=== PATIENT | male | born 1995 | race American Indian/Alaskan Native ===

== ENCOUNTER → 2018-03-19 | Outpatient (REF) | payer OTHER ==
[2018-03-19 14:16] LABS: ERYTHROCYTE SEDIMENTATION RATE 4 mm/hr (0-15)
== END ==
LOC: M LAB REF 13:32
DX: C81.90 Hodgkin lymphoma, unspecified, unspecified site (principal)
CPT/HCPCS: 84443

== ENCOUNTER → 2018-12-18 | Outpatient (CLI) | payer OTHER ==
--- NOTE | 2018-12-18 17:57 | REP ---
Thyroid sonography: History: History of Hodgkin's lymphoma, 2015. Status post radiation therapy chemotherapy. Evaluate thyroid. Findings: Thyroid isthmus is 0.2 cm thick. Right lobe dimensions by ultrasound are 3.8 x 0.9 x 1.1 cm. Left lobe dimensions are 3.3 x 1.0 x 0.8 cm. No thyroid nodule is seen. There is a 1 mm cyst in the right lobe. Thyroid parenchyma is homogeneous otherwise. No adenopathy is seen. Impression: Normal thyroid sonography. Electronically Signed by Maico Davis MD 12/18/2018 08:06 P
== END ==
LOC: M RAD 13:06
PROVIDERS: ATTEND Internal Medicine Hematology & Oncology
DX: E03.9 Hypothyroidism, unspecified (principal)

== ENCOUNTER → 2018-12-22 | Outpatient (CLI) | payer OTHER ==
[~2018-12-22] MED LIST: LIDOCAINE 2% MDV 20 ML VIAL As Ordered ONE
--- NOTE | 2018-12-23 07:03 | REPIR ---
DATE OF PROCEDURE: 12/22/2018 ATTENDING PHYSICIAN: Dr. Brandin Mcleod [facility]: Thania Martinez and Kerry Sal PREOPERATIVE DIAGNOSIS: Lymphoma status post right internal jugular vein tunneled central venous catheter with subcutaneous port placement. POSTOPERATIVE DIAGNOSIS: Lymphoma status post right internal jugular vein tunneled central venous catheter with subcutaneous port placement. PROCEDURE: Removal of right internal jugular vein tunneled central venous catheter with subcutaneous port, right chest scar revision. INDICATION: The patient is a 23-year-old male who was diagnosed with lymphoma who required access for chemotherapy and underwent placement of a right internal jugular vein tunneled central venous catheter with subcutaneous port. The patient no longer requires access and will undergo removal of the port. The patient also has a widened scar which is approximately 1 cm in width from the previous placement of the Port-A-Cath. The patient will undergo revision of the scar with removal of the scar tissue and removal of the right internal jugular vein tunneled central venous catheter with subcutaneous port. Risks, benefits and alternative treatment options were discussed with the patient. Alternative treatment options included, but were not limited to no intervention. Benefits include, but not limited to removal of the scar and the port, reducing the risks associated with the continued placement of the port. Risks included, but were not limited well to, infection, bleeding, pneumothorax, hemothorax, possible need for further open surgical intervention, cerebrovascular accident, myocardial infarction, pulmonary embolus, deep vein thrombosis (DVT, loss of limb, loss of life, poor outcome, and poor results. The patient's questions were answered. The procedure was described and explained to the patient in detail with drawing of pictures, explaining the procedure and the pertinent anatomies. The patient acknowledges understanding of these risks, benefits and alternative options and agrees to proceed. There were no promises or guarantees made regarding the procedure outcome or results. The patient and his fiancee were present during the discussion of the procedure. ANESTHESIA: Local with 30 mL of 2% lidocaine. FLUORO TIME: 0.1 minutes. CONTRAST: None. COMPLICATIONS: None. DRAINS: None. SPECIMENS: None. IMPLANTS: None. DESCRIPTION OF PROCEDURE: The patient was taken to the angiography suite, placed on the angiography room table and then prepped and draped in a standard surgical fashion. The skin overlying the subcutaneous port was anesthetized with 2% lidocaine. An incision was then made on either side of the previous scar and then the ellipse of skin and scar were removed. The dissection was then carried down sharply to the subcutaneous port which was identified, sharply dissected free and removed. The catheter was removed with the port. A #2-0 Vicryl suture was placed in [id number] fashion at the tunnel site for hemostasis. The subcutaneous tissue was then closed with interrupted #2-0 Vicryl sutures in vertical mattress fashion. The skin was closed with a running #3-0 Monocryl subcuticular stitch. Steri-Strips and dressings were applied. The patient tolerated the procedure well. All instrument, sponge and needle counts were correct at the end of the case. There were no complications. Dr. Mcleod was present for and directed the entire case. The patient was transferred to holding area and subsequently discharged in stable condition. The results and outcome of the procedure were discussed with the patient and his fiancee and all of their questions were answered.
== END | disposition home or self-care (01) ==
LOC: M IRPRO 07:38
PROVIDERS: ATTEND Internal Medicine Hematology & Oncology
DX: Z45.2 Encounter for adjustment and management of vascular access device (principal); Z85.71 Personal history of Hodgkin lymphoma; Z92.21 Personal history of antineoplastic chemotherapy

== ENCOUNTER → 2019-01-01 | Outpatient (CLI) | payer OTHER ==
[~2019-01-01] MED LIST changes: +ISOVUE-370 76% 100ML VIAL (Q9967) As Ordered ONE; -LIDOCAINE 2% MDV 20 ML VIAL As Ordered ONE
--- NOTE | 2019-01-04 09:39 | REP ---
CT NECK WITH CONTRAST: HISTORY: Hodgkin's lymphoma. CONTRAST: Isovue 370, 75 mL. A calcification is present in the left tonsil. This is secondary to previous inflammatory disease. The naso-, humble-, and hypopharynx, larynx and subglottic trachea are otherwise normal in appearance. The salivary and thyroid glands are normal in size and density. Small lymph nodes less than 1 cm in size are present in the posterior triangles, submandibular and submental areas. The lung apices are clear. The visualized sinuses are clear. A 5 mm metallic density is present in the left orbit. IMPRESSION: 1. There is no neck mass or adenopathy. 2. There is a 5 mm metallic density in the left orbit. Electronically Signed by Haroon Macias MD 01/04/2019 09:42 A
== END ==
LOC: M RAD 16:03
PROVIDERS: ATTEND Internal Medicine Hematology & Oncology
DX: Z85.71 Personal history of Hodgkin lymphoma (principal); E03.9 Hypothyroidism, unspecified; Z92.21 Personal history of antineoplastic chemotherapy
CPT/HCPCS: 70491; Q9967

== ENCOUNTER → 2020-01-13 | Outpatient (CLI) | payer OTHER, SELFPAY ==
[~2020-01-13] MED LIST changes: -ISOVUE-370 76% 100ML VIAL (Q9967) As Ordered ONE; +LEVO25TA5 PO
[2020-01-13 14:37] LABS: ALBUMIN 3.8 GM/DL (3.2-5.2); ALT/SGPT 61 U/L (12-78); BILIRUBIN,TOTAL 0.3 MG/DL (0.2-1.0); BLOOD UREA NITROGEN 16 MG/DL (7-18); CARBON DIOXIDE LEVEL 33 MEQ/L (21-32); CHLORIDE LEVEL 100 MEQ/L (98-107); CREATININE FOR GFR 0.92 MG/DL (0.70-1.30); GLOMERULAR FILTRATION RATE > 60.0 (>60); GLUCOSE, FASTING 87 MG/DL (70-100); POTASSIUM SERUM 3.8 MEQ/L (3.5-5.1); SODIUM LEVEL 140 MEQ/L (136-145); TOTAL PROTEIN 7.3 GM/DL (6.4-8.2)
[2020-01-13 14:52] LABS: HEMATOCRIT 37.3 % (42.0-52.0); HEMOGLOBIN 11.7 g/dl (13.5-17.5); MEAN CORPUSCULAR HEMOGLOBIN 26.6 pg (27.0-33.0); MEAN CORPUSCULAR HGB CONC 31.4 g/dl (32.0-36.5); MEAN CORPUSCULAR VOLUME 84.8 fl (80.0-96.0); PLATELET COUNT, AUTOMATED 200 10^3/uL (150-450); WHITE BLOOD COUNT 5.3 10^3/uL (4.0-10.0)
[2020-01-13 15:59] LABS: CHLAMYDIA DNA AMPLIFICATION NEGATIVE (NEGATIVE); GC DNA AMPLIFICATION NEGATIVE (NEGATIVE)
[2020-01-14 09:34] LABS: HEPATITIS B SURFACE ANTIGEN NEGATIVE (NEGATIVE)
[2020-01-14 10:02] LABS: HEPATITIS C VIRUS ABY INDEX < 0.0 INDEX (<0.8); HIV 1&2 SCREEN CENTAUR NEGATIVE (NEGATIVE)
== END ==
LOC: M LAB 11:51
PROVIDERS: ATTEND Family Medicine
DX: F11.20 Opioid dependence, uncomplicated (principal)

== ENCOUNTER → 2020-02-17 | Outpatient (CLI) | payer OTHER ==
[~2020-02-17] MED LIST changes: +LEVO75TA4 PO; +METH10CO PO
--- NOTE | 2020-02-17 13:39 | REP ---
BILATERAL BREAST ULTRASOUND: Real-time sonographic evaluation of bilateral breast is performed. Patient has a history of Hodgkin's lymphoma with reported larger size of right breast compared to left. Both breasts were scanned completely sonographically and demonstrate no evidence of a discrete cystic or solid mass. No fluid collection is seen. IMPRESSION: BIRADS category 2 benign bilateral breast ultrasound with no discrete mass or fluid collection.
== END ==
LOC: M WHC 11:58
PROVIDERS: ATTEND Internal Medicine Hematology & Oncology
DX: C81.90 Hodgkin lymphoma, unspecified, unspecified site (principal)